=== PATIENT | male | born 1955 | race Caucasian/White ===

== ENCOUNTER → 2016-12-01 | Day surgery (SDC) | payer OTHER ==
[2016-11-30 11:59] VITALS: BMI 27.0
[~2016-12-01] VITALS: Ht 172.7 cm; Wt 81.8 kg
[~2016-12-01] MED LIST: ACETAMINOPHEN 500 MG TAB PO SCH; ATROPINE SULFATE 0.1 MG/ML 5ML SYR IV PRN; BACITRACIN 50000 UNIT VIAL IR ONE; BUPIVACAINE/EPINEPHRINE 0.5% MPF 1:200,000 30 ML VIAL INJ ONE; CEFAZOLIN 2000 MG/60 ML D5W 60 ML IV SCH; DEXAMETHASONE SOD INJ 4 MG/ML VIAL ONE; EpHEDrine SULFATE 50MG/5ML SYR ONE; EpHEDrine SULFATE INJ 50 MG/ML AMP IV PRN; FAMOTIDINE 20 MG TAB PO SCH; FENTANYL CITRATE INJ 50 MCG/1 ML 2 ML VIAL ONE; GABAPENTIN 300 MG CAP PO SCH; HYDROmorphone INJ 1 MG/ML SYR IV PRN; HYDROmorphone INJ 1 MG/ML SYR ONE; KETOROLAC TROMETHAMINE 30 MG/ML VIAL ONE; LABETALOL HCL IV 5 MG/ML 20ML IV PRN; LACTATED RINGER'S 1000ML 1,000 ML IV SCH; LACTATED RINGER'S 1000ML IV SCH; LIDOCAINE HCL 2% 2 ML VIAL (20MG/ML) ONE; MIDAZOLAM HCL 1 MG/ML 2ML VIAL ONE; NALOXONE HCL 0.4 MG/1 ML VIAL/CARP IV PRN; ONDANSETRON INJ 2 MG/ML 2 ML VIAL IV PRN; ONDANSETRON INJ 2 MG/ML 2 ML VIAL ONE; OXYC-57 PO; OXYCODONE/ACETAMINOPHEN 5-325 TAB PO PRN; PROMETHAZINE HCL INJ 12.5 MG in SODIUM CHLORIDE 0.9% 50ML 50 ML IV PRN; PROPOFOL IV EMULSION 10 MG/ML 20 ML VIAL IV ONE; SODIUM CHLORIDE 0.9% 1000ML 1,000 ML IV SCH
--- NOTE | 2016-12-01 07:16 | HISTORY & PHYSICAL EXAMINATION ---
DATE OF ADMISSION: 12/01/2016 CHIEF COMPLAINT: Left bimalleolar ankle fracture. HISTORY OF PRESENT ILLNESS: Cody is a pleasant 61-year-old male who slipped on the ice several days ago and twisted his left ankle. He noticed significant deformity, came to my office for radiographs demonstrated displaced bimalleolar ankle fracture. After discussions in the office, he elected to proceed with operative fixation. PAST MEDICAL HISTORY: Denied. PAST SURGICAL HISTORY: Significant for breast surgery for breast cancer removal. ALLERGIES: None. MEDICATIONS: None. FAMILY HISTORY: Noncontributory. SOCIAL HISTORY: He is . He never drinks. Denies any tobacco use. He is very active. REVIEW OF SYSTEMS: He complains of left ankle pain. All other pertinent review of systems is negative. PHYSICAL EXAMINATION: GENERAL: He is awake, alert and oriented x3. He is in no apparent distress. He is very pleasant. HEENT: Pupils are equal, round and reactive to light. Extraocular motion intact. Oral mucosa is pink and moist. HEART: Regular rate per radial pulse. LUNGS: Kortney symmetrically bilaterally with no audible breath sounds. ABDOMEN: Soft, nontender, nondistended. MUSCULOSKELETAL: On physical examination of the ankle, he does have a lot of swelling and moderate gross deformity with lateral translation of the talus. There are no abrasions, lesions, or lacerations of the skin. He has a lot of tenderness to palpation over both the lateral and medial malleolus. IMAGING: X-rays of the left ankle do show a bimalleolar left ankle fracture with a short oblique distal fibular fracture and a transverse medial malleolar fracture and lateral translation of the talus. IMPRESSION: Displaced bimalleolar left ankle fracture. PLAN: We will proceed with open reduction internal fixation of the left ankle. Postoperatively, he will be placed in a splint and remain nonweightbearing and likely discharged to home.
--- NOTE | 2016-12-01 13:26 | History & Physical Bridge Note ---
H&P Re-Evaluation Bridge Note: I have examined the patient, reviewed the History & Physical and in the interval since the performance of the History & Physical I have noted the following changes of clinical significance: No changes noted
[2016-12-01 13:29] VITALS: BP 128/79; PULSE 58; TEMP 36.6; O2SAT 97; Ht 172.7 cm; Wt 81.8 kg
--- NOTE | 2016-12-01 17:09 | DIAGNOSTIC IMAGING REPORT ---
Left ankle LEFT ANKLE MIN 3 VIEWS ROUTINE CLINICAL HISTORY: Left bimalleolar Fracture; ORIF bimalleolar fracture TECHNIQUE: Image intensifier COMPARISON STUDY: None FINDINGS: Operative reduction internal fixation of the bimalleolar fracture left ankle. Alignment is anatomic. IMPRESSION: Anatomic alignment Electronically signed by: Israel Hardin M.D. 12/01/2016 5:07 PM Dictated Date/Time: 12/01/2016 5:07 PM
--- NOTE | 2016-12-01 17:16 | Discharge Instructions ---
Discharge Instructions Admission Reason for Admission: Closed Bimalleolar Fracture Discharge Discharge Diagnosis / Problem: SAME ABOVE Discharge Goals Goal(s): Decrease discomfort, Improve function Activity Recommendations Activity Limitations: as noted below Lifting Limitations: until after follow-up appointment Exercise/Sports Limitations: until after follow-up appointment Weightbearing Status: Left non-weightbearing . Instructions / Follow-Up Instructions / Follow-Up MEDICATIONS: * Resume previous medications unless instructed otherwise by your surgeon. * Always take pain medication on a full stomach or with food to avoid upset stomach. * Do not drink alcohol or drive while taking narcotics. * Ibuprofen or Tylenol may be taken if narcotic not needed. SPECIAL CARE INSTRUCTIONS: __ None _X_ Keep extremity elevated and iced x 48 hours; apply ice 20-30 minutes 8-10 times/day. May remove at night. _X_ Crutches __ May discard when able __ Brace/Post-op shoe __ 24 hrs/day __ Remove at night _X_ Dressing _X_ Maintain until seen in office, may shower with plastic over site __ Remove dressings in 24-48 hours and then may shower __ Cover incisions with band-aids after showering __ Do not remove steri-strips Call physician if chills or temperature rises above 102 degrees or pain unrelieved by prescribed pain medications. Office [phone] Current Hospital Diet Patient's current hospital diet: Discharge Diet Recommended Diet: Regular Diet Fluid Restriction: None Procedures Procedures Performed: ORIF LEFT BIMALLEOLAR FRACTURE Pending Studies Studies pending at discharge: no Work Instructions Return To Work: after follow-up Medical Emergencies . Who to Call and When: Medical Emergencies: If at any time you feel your situation is an emergency, please call 911 immediately. . Non-Emergent Contact Non-Emergency issues call your: Primary Care Provider Call Non-Emergent contact if: you have a fever, temperature is above 101.5 . "Provider Documentation" section prepared by Greg Rene. VTE Core Measure Inpt VTE Proph given/why not?: Treatment not indicated
--- NOTE | 2016-12-01 17:17 | [facility] Post Operative Brief Note ---
Immediate Operative Summary Operative Date Dec 01, 2016. Pre-Operative Diagnosis CLOSED BIMALLEOR LEFT ANKLE FRACTURE Post-Operative Diagnosis CLOSED BIMALLEOR LEFT ANKLE FRACTURE Procedure(s) Performed ORIF LEFT BIMALLEOLAR FRACTURE Surgeon DR SUN Cutting Tool Sharpener Surgeon(s) VIRGIL RANKIN Findings as above Specimens NONE Complication(s) None Disposition Recovery Room / PACU
--- NOTE | 2016-12-01 17:57 | Anesthesiology Progress Note ---
Anesthesia Post Op Note Date & Time Dec 01, 2016 at 17:57 Vital Signs Pain Intensity: 5 Vital Signs Past 12 Hours Date Time Temp Pulse Resp B/P Pulse Ox O2 Delivery O2 Flow Rate FiO2 12/01/16 17:55 36.9 12/01/16 17:49 66 15 12/01/16 17:49 66 15 93 12/01/16 17:48 148/72 12/01/16 17:45 68 16 94 12/01/16 17:45 69 16 12/01/16 17:43 129/66 12/01/16 17:40 66 16 93 12/01/16 17:40 66 16 12/01/16 17:38 117/76 12/01/16 17:35 65 15 12/01/16 17:35 65 15 100 12/01/16 17:33 158/94 12/01/16 17:30 63 14 100 12/01/16 17:30 63 14 12/01/16 17:28 149/79 12/01/16 17:25 62 14 100 12/01/16 17:25 61 14 12/01/16 17:23 167/79 12/01/16 17:20 63 12 100 12/01/16 17:20 63 12 12/01/16 17:18 148/79 12/01/16 17:15 36.8 71 18 148/84 99 Mask 10 12/01/16 17:15 68 18 12/01/16 17:15 67 18 100 12/01/16 13:29 36.6 58 18 128/79 97 Room Air Notes Mental Status: alert / awake / arousable, participated in evaluation Pt Amnestic to Procedure: Yes Nausea / Vomiting: adequately controlled Pain: adequately controlled Airway Patency, RR, SpO2: stable & adequate BP & HR: stable & adequate Hydration State: stable & adequate Anesthetic Complications: no major complications apparent
[2016-12-01 18:00] VITALS: BP 142/72; PULSE 64; TEMP 37.2; O2SAT 93
[2016-12-01 18:30] VITALS: BP 154/87; PULSE 77; TEMP 37; O2SAT 94
--- NOTE | 2016-12-02 | OPERATIVE REPORT ---
DATE OF OPERATION: 12/01/2016 PREOPERATIVE DIAGNOSIS: Bimalleolar left ankle fracture. POSTOPERATIVE DIAGNOSIS: Same. PROCEDURE: Open reduction and internal fixation of a left distal fibula and left medial malleolus. SURGEON: Dr. Eulogio Ward. MULTICRAFT OPERATOR: Greg Rene PA-C, whose assistance was necessary for positioning of the leg and helping with instrumentation. ANESTHESIA: General. COMPLICATIONS: None. CONDITION: Stable to PACU. IMPLANTS USED: I used a [employer] distal fibular locking plate and 2 medial sided 4.0 cannulated cancellous screws. INDICATIONS: Cody is a pleasant 61-year-old male who slipped on the ice and twisted his ankle several days ago. He presented to my office where x-rays demonstrated a displaced bimalleolar ankle fracture. He elected to undergo operative fixation. OPERATION AND FINDINGS: On 12/01/2016, he arrived at [facility] for the above procedure. He was seen in the preoperative holding area and the operative extremity was identified and signed. He was given a preoperative antibiotic and taken back to the operating room, laid on the table in supine position and put under general anesthesia. The left ankle was then prepped and draped in sterile fashion. Time-out was done and the patient and operative extremity was properly identified. A lateral incision was made directly over the distal fibula. Dissection was taken down through the fascia and the distal fibula was exposed. The fracture was easily reduced and the lag screw was placed. The fracture clamp was removed and a 5-hole distal fibular locking plate was placed. A single compression screw was then placed, followed by 5 distal locking screws and 2 additional proximal locking screws. This gave good fixation. Alignment of the hardware and the fracture were all checked on the orthogonal fluoroscopic images. Attention was turned to the medial malleolus. A curvilinear incision was made directly over the medial malleolus. Dissection was taken down through the fascia and the medial malleolar fragment was identified in an oblique fashion. A clamp was used to reduce the fracture. Two guidewires were then placed, followed by two 40 mm cancellous screws. I was able to get a good bite with each screw. Final fluoroscopic images were checked. The ankle mortise was properly reduced. The wounds were then irrigated and the skin was closed with 2-0 Vicryl and ayla. He was then placed in a trauma splint, extubated, transferred to a [facility] and taken to the postanesthesia care unit in stable condition. He tolerated the procedure well. I attest to the content of the Intraoperative Record and any orders documented therein. Any exceptio ns are noted below.
== END | disposition home or self-care (01) ==
LOC: C.ACU 12:56
PROVIDERS: ATTEND Orthopaedic Surgery
DX: S82.842A Displaced bimalleolar fracture of left lower leg, initial encounter for closed fracture (principal); W00.0XXA Fall on same level due to ice and snow, initial encounter; Z98.890 Other specified postprocedural states; Z85.3 Personal history of malignant neoplasm of breast; Z68.29 Body mass index [BMI] 29.0-29.9, adult; Z98.41 Cataract extraction status, right eye; Z98.42 Cataract extraction status, left eye